=== PATIENT | male | born 1960 | race Caucasian/White ===

== ENCOUNTER 2020-07-13 06:34 | Emergency (ER) | payer OTHER ==
[~2020-07-13] VITALS: Ht 182.9 cm; Wt 89.1 kg
[2020-07-13] VITALS (16 sets, daily range): BP systolic 129–159; BP diastolic 73–110
[2020-07-13 07:08] LABS: BASOPHILS # (AUTO) 0.1 X10'3 (0-0.2); BASOPHILS % (AUTO) 0.7 % (0-1); EOSINOPHILS % (AUTO) 0.5 % (0-6); HEMATOCRIT 47.3 % (42.0-52.0); HEMOGLOBIN 16.3 g/dl (14.0-17.9); LYMPHOCYTES # (AUTO) 1.2 X10'3 (1.1-4.8); LYMPHOCYTES % (AUTO) 14.5 % (21-51); MEAN CORPUSCULAR HEMOGLOBIN 31.4 PG (27.0-31.0); MEAN CORPUSCULAR HGB CONC 34.4 g/dL (33.0-36.5); MEAN CORPUSCULAR VOLUME 91.2 FL (78-98); MEAN PLATELET VOLUME 7.2 FL (7.4-10.4); MONOCYTES # (AUTO) 0.4 X10'3 (0-0.9); MONOCYTES % (AUTO) 5.2 % (2-12); NEUTROPHILS # (AUTO) 6.8 X10'3 (1.8-7.7); NEUTROPHILS % (AUTO) 79.1 % (42-75); PLATELET COUNT 266 X10'3 (140-440); RED BLOOD COUNT 5.19 X10'6 (4.70-6.10); RED CELL DISTRIBUTION WIDTH 12.7 % (11.5-14.5); WHITE BLOOD COUNT 8.6 X10'3 (4.5-11.0)
[2020-07-13 07:19] LABS: ALBUMIN 3.9 G/DL (3.4-5.0); ANION GAP 8 (8-16); BLOOD UREA NITROGEN 10 MG/DL (7-18); BUN/CREATININE RATIO 12.7 (5.4-32.0); CALCIUM 9.6 MG/DL (8.5-10.1); CHLORIDE 109 MMOL/L (99-107); CREATININE 0.79 MG/DL (0.60-1.10); GLUCOSE 116 MG/DL (70-104); SODIUM 144 MMOL/L (135-145); TOTAL CARBON DIOXIDE 27.1 MMOL/L (24-32); eGFR > 90 ML/MIN
[2020-07-13] MEDS ORDERED: HYDROmorphone inj. 0.5 MG/0.5 ML DISP.SYRIN IV PRN (08:20)
[2020-07-13] MEDS ORDERED: ondansetron/PF 4mg/2ml inj IV PRN ×2 (08:20→10:20)
[2020-07-13] MEDS ORDERED: BUPIVAcaine/PF 2.5 mg/ml (0.25%) 30ml vial ONE (09:49)
[2020-07-13] MEDS ORDERED: midazolam 2 mg/2 ml injection ONE (10:19)
[2020-07-13] MEDS ORDERED: fentaNYL/PF 50MCG/1 ML 2ML syringe ONE ×2 (10:19→11:09)
[2020-07-13] MEDS ORDERED: morphine 4 MG/ML inj SYRINge IV PRN (10:20)
[2020-07-13] MEDS ORDERED: proCHLORperazine 10 MG/2 ml inj IV PRN (10:20)
[2020-07-13] MEDS ORDERED: ringers solution, lacted 1,000 ML IV SCH (10:20)
[2020-07-13] MEDS ORDERED: meperidine/PF 25mg/ml syringe IV PRN ×3 (10:20)
[2020-07-13] MEDS ORDERED: morphine 2 MG/ML inj. syringe IV PRN (10:20)
[2020-07-13] MEDS ORDERED: sevoflurane 250ml liquid IH ONE (10:28)
[2020-07-13] MEDS ORDERED: ceFAZolin 1000mg inj ONE (10:49)
[2020-07-13] MEDS ORDERED: glycopyrrolate 0.2mg/ml inj ONE (10:49)
[2020-07-13] MEDS ORDERED: neostigmine methylsulfate 1 MG/ML 10ml vial ONE (10:49)
[2020-07-13] MEDS ORDERED: ondansetron/PF 4mg/2ml inj ONE (10:49)
[2020-07-13] MEDS ORDERED: dexamethasone sod phosphate 4mg/ml inj. ONE (10:49)
[2020-07-13] MEDS ORDERED: rocuronium 10mg/ml inj IV ONE (10:49)
[2020-07-13] MEDS ORDERED: LIDOcaine 2% (20mg/ml) 5ml vial ONE (10:49)
[2020-07-13] MEDS ORDERED: propofol inj 20 ML IV ONE (10:49)
[2020-07-13] MEDS ORDERED: mupirocin 2% ointment 22GM ONE (11:52)
--- NOTE | 2020-07-13 12:53 | NUR ---
Received from OR via BED, accompanied by Anesthesiologist DR MATHUR and report given by Anesthesiologist. PT W/LMA, VERY DROWSY, VSS. PENIS SWOLLEN, RED AND BRUISED W/MUPIROCIN OINTMENT COVERING W/BLUE TOWEL LAYING OVER AREA. DEL CASTILLO CATHETER TO GRAVITY DRAINAGE W/YELLOW URINE IN TUBING. Addendum: 07/13/20 at 1318 by Roxy Thomas RN Amended: Links added. Addendum: 07/13/20 at 1332 by Roxy Thomas RN DR KEVAN Stover/NENA PT'S LMA.
[2020-07-13] MEDS ORDERED: NO HOME MEDS (13:06)
--- NOTE | 2020-07-13 14:00 | NUR ---
Received pt via bed from recovery. Pt awake A&O x4 denies pain. F/C present draining yellow urine. Penis bruised and edematous covered with blue or towel. Discussed POC for recovery from surgery. Pt verbalizes understanding. Bed low, call light in reach.
[2020-07-13] MEDS ORDERED: HYDROcodone/acetaminophen 5mg/325mg tablet PO PRN ×2 (16:25)
--- NOTE | 2020-07-13 18:40 | NUR ---
Patient in room [facility]. I have received report from MAURIZIO TRINH and had the opportunity to ask questions and assume patient care. Addendum: 07/13/20 at 1840 by Maeve Chavarria RN Amended: Links added.
--- NOTE | 2020-07-13 19:05 | NUR ---
pt denies c/o pain or discomfort at this time.
[2020-07-13] MEDS: bacitracin/polymyxin B 15 GM ointment TP SCH (20:00)
--- NOTE | 2020-07-13 22:20 | NUR ---
pt flores care given liens changed and positioned to comfort. scrotum bruised swollen as well as penis and towel gently placed to elevate scrotum. discussed flores care with pt and circumcised care Bactrim applied as ordered and pt positioned to comfort. offered pain meds stated only uncomfortable when he moved and encouraged pain med but stated did not feel he needed it.
[2020-07-14] VITALS: BP 128/76
--- NOTE | 2020-07-14 00:25 | NUR ---
resting without changes.
--- NOTE | 2020-07-14 02:43 | NUR ---
resting eyes closed without s&s of distress at this time.
--- NOTE | 2020-07-14 04:35 | NUR ---
resting without changes.
--- NOTE | 2020-07-14 06:55 | NUR ---
Problems reprioritized. Patient report given, questions answered & plan of care reviewed with PABLO TRINH. Addendum: 07/14/20 at 0655 by Maeve Chavarria RN Amended: Links added.
--- NOTE | 2020-07-14 06:56 | NUR ---
Patient in room [facility]. I have received report from Maeve TRINH and had the opportunity to ask questions and assume patient care.
[2020-07-14 07:00] VITALS: BP 133/84
--- NOTE | 2020-07-14 07:00 | NUR ---
Indwelling F/C in place, draining clear, yellow urine. Per Noc shift RN, Dr Heredia does not want flores cath removed, pt to go home with it.
[2020-07-14] MEDS: bacitracin/polymyxin B 15 GM ointment TP SCH (08:00)
[2020-07-14] MEDS ORDERED: HYDR-4383 PO (09:23)
[2020-07-14] MEDS ORDERED: BACI28.33 TP (09:23)
--- NOTE | 2020-07-14 09:30 | NUR ---
Dr Heredia here, report given, orders received.
--- NOTE | 2020-07-14 11:00 | NUR ---
Pt spontaneously voided 200 cc clear yellow urine per urinal. No c/o at this time. Will continue to monitor.
[2020-07-14 12:00] VITALS: BP 140/84
--- NOTE | 2020-07-14 13:00 | NUR ---
Pt spontaneously voided 400 cc clear yellow urine per urinal prior to D/C. Pt stable and appropriate for D/C. PIV d/c'd, canula intact. reviewed with patient all d/c instructions and meds, as well as wound care, supplies given, with pt given opportunity to ask questions, answers provided and pt verbalizing understanding. Prescriptions phoned to pharmacy of choice in [place], [place]. Triplicate given to pt to fill at pharmacy of choice. Pt to phone PCP or surgeon with any questions/concerns, s/sx of complications/infection or return to nearest ED. Pt ambulated from unit to front lobby, escorted by hospital staff with all personal belongings. Driven home in private vehicle driven by girlfriend.
== END 2020-07-13 15:10 | disposition home or self-care (01) ==
LOC: ER 06:35 → ED HOLD 08:18 → PACU 13:13 → SUR 3N 14:33 → ER 15:10
DX: S39.840A Fracture of corpus cavernosum penis, initial encounter (principal); X58.XXXA Exposure to other specified factors, initial encounter; Y93.89 Activity, other specified; Y92.89 Other specified places as the place of occurrence of the external cause; Y99.8 Other external cause status
CPT/HCPCS: 36415; 54440; 80048; 85025; 85610; 93005; 99285; A6402; C1758; J0690; J1100; J2001; J2250; J2405; J2704; J2710; J3010; J3490; J7120; A4618; G0378